=== PATIENT | male | born 1975 | race Caucasian/White ===

== ENCOUNTER → 2020-04-01 | Outpatient (CLI) | payer BC ==
--- NOTE | 2020-04-01 09:43 | US ---
EXAMINATION TYPE: US abdomen limited DATE OF EXAM: 04/01/2020 COMPARISON: NONE CLINICAL HISTORY: K21.9 gastroesophagel reflux. EXAM MEASUREMENTS: Liver Length: 14.7 cm Gallbladder Wall: 0.3 cm CBD: 0.2 cm Right Kidney: 11.8 x 4.4 x 4.6 cm Pancreas: some portions obscured by bowel gas, portions visualized wnl Liver: wnl Gallbladder: wnl Evidence for sonographic Ott's sign: no CBD: wnl Right Kidney: wnl IMPRESSION: No distinct abnormality appreciated.
== END | disposition home or self-care (01) ==
LOC: RADUSWWP 08:18
PROVIDERS: ATTEND Family Medicine
DX: K21.9 Gastro-esophageal reflux disease without esophagitis (principal)
CPT/HCPCS: 76705

== ENCOUNTER 2020-05-20 08:50 | Day surgery (SDC) | payer BC ==
[2020-05-15 11:25] VITALS: BMI 27.8
[~2020-05-20 08:50] MED LIST: LACTATED RINGERS 1,000 ML IV SCH; LIDOCAINE 1% (10MG/ML) FOR IV START INTRADERMA PRN
[2020-05-20 09:16] VITALS: RESP 16; TEMP 96.7
[2020-05-20] MEDS ORDERED: LIDOCAINE 1% INJ 10MG/ML (20 ML MDV) ONE (09:45)
[2020-05-20] MEDS ORDERED: PROPOFOL 10 MG/ML 20 ML VIAL IV ONE (09:45)
--- NOTE | 2020-05-20 09:49 | P.GSHP ---
History of Present Illness H&P Date: 05/20/20 Chief Complaint: GERD Patient with history of chronic reflux. He has had an EGD approximately 25 years ago. Takes omeprazole 40 mg once daily with good control the symptoms. Any time he stops his medications however he develops reflux. No dysphagia. Past Medical History Past Medical History: GERD/Reflux Additional Past Medical History / Comment(s): irregular heart rhythm History of Any Multi-Drug Resistant Organisms: None Reported Past Surgical History: Heart Catheterization Additional Past Surgical History / Comment(s): egd Past Anesthesia/Blood Transfusion Reactions: No Reported Reaction Smoking Status: Current every day smoker - Past Family History Mother Family Medical History: Cancer Additional Family Medical History / Comment(s): thyroid cancer Father Family Medical History: Coronary Artery Disease (CAD) Additional Family Medical History / Comment(s): blood clots in arm Medications and Allergies Home Medications Medication Instructions Recorded Confirmed Type Cyanocobalamin (Vitamin B-12) 1,000 mcg PO DAILY 05/15/20 05/20/20 History [Vitamin B-12] Omeprazole 40 mg PO HS 05/15/20 05/20/20 History Allergies Allergy/AdvReac Type Severity Reaction Status Date / Time Iodine and Iodide Containing Allergy Nausea & Verified 05/20/20 09:07 Produc Vomiting Surgical - Exam Vital Signs Temp Pulse Resp BP Pulse Ox 96.7 F L 59 L 16 131/84 98 05/20/20 09:10 05/20/20 09:10 05/20/20 09:10 05/20/20 09:10 05/20/20 09:10 Physical exam: General: Well-developed, well-nourished HEENT: Normocephalic, sclerae nonicteric Abdomen: Nontender, nondistended Extremities: No edema Neuro: Alert and oriented Assessment and Plan (1) GERD (gastroesophageal reflux disease) Narrative/Plan: Will proceed with upper endoscopy Current Visit: Yes Status: Acute Code(s): K21.9 - GASTRO-ESOPHAGEAL REFLUX DISEASE WITHOUT ESOPHAGITIS SNOMED Code(s): 075099788
--- NOTE | 2020-05-20 09:58 | P.PCN ---
Date of Procedure: 05/20/20 Procedure(s) Performed: Preoperative Dx: GERD Postoperative Dx: Mild gastritis, small to moderate hiatal hernia Procedure: EGD with Bx Anesthesia: Sedation Endoscopist: Dr. Roger Specimens: Antrum Endoscopic Procedure: The patient was on the endoscopy table in the left decubitus position. The Olympus gastroscope was inserted into the oropharynx and passed under direct visualization to the region of the third portion of the duodenum. From that point the scope was slowly withdrawn inspecting all surfa yohana carefully. There were no neoplastic inflammatory or polypoid lesions throughout the duodenum. The pylorus was widely patent. The stomach was carefully inspected. There was out gastritis present. A biopsy of the antrum took place to rule out H. pylori. Retroflexion revealed a small moderate-sized hiatal hernia with the GE junction present approximately 2-3 cm above the diaphragmatic hiatus. The visualized esophagus appeared completely normal however. The patient was then taken to the recovery room in stable condition per anesthesia guidelines. Recommendations: Await bx results. Will discuss surgical options with patient further.
[2020-05-20 10:18] VITALS: BP 104/67; PULSE 60
== END 2020-05-20 10:37 ==
LOC: ORWHC2ENDO 08:50
PROVIDERS: ATTEND Surgery
DX: K29.50 Unspecified chronic gastritis without bleeding (principal); K44.9 Diaphragmatic hernia without obstruction or gangrene; K21.9 Gastro-esophageal reflux disease without esophagitis; F17.200 Nicotine dependence, unspecified, uncomplicated; Z91.048 Other nonmedicinal substance allergy status; Z79.899 Other long term (current) drug therapy; Z80.8 Family history of malignant neoplasm of other organs or systems; Z82.49 Family history of ischemic heart disease and other diseases of the circulatory system
CPT/HCPCS: 88305; 43239; J2001; J2704